=== PATIENT | male | born 1990 | race Caucasian/White ===

== ENCOUNTER → 2019-01-13 | Outpatient (CLI) | payer OTHER ==
[2019-01-13 14:07] LABS: FREE THYROXINE INDEX 2.9 % (1.4-3.8); THYROID STIMULATING HORMONE 2.39 uIU/ML (0.358-3.740); THYROXINE (T4) 9.5 UG/DL (4.5-12.0)
[2019-01-13 14:08] LABS: TOTAL T3 150.9 NG/DL (60.0-181.0)
== END ==
LOC: M LAB 12:51
PROVIDERS: ATTEND Otolaryngology
DX: E04.9 Nontoxic goiter, unspecified (principal)

== ENCOUNTER → 2019-01-30 | Outpatient (REF) | payer OTHER | LOC: M LAB REF 13:00 | PROVIDERS: ATTEND Otolaryngology | DX: E04.1 Nontoxic single thyroid nodule (principal) ==